=== PATIENT | female | born 1980 | race Caucasian/White ===

== ENCOUNTER → 2016-10-05 | Outpatient (REF) | payer OTHER ==
[~2016-10-05] MED LIST: ALIG4CAP PO; FLON0.054; MOTR200T44 PO; MULTCAP PO; MULTTAB33 PO; NORCOTAB PO; albuterol inhaler PO
== END ==
LOC: M SFHCWAGY 13:11
PROVIDERS: ATTEND Nurse Practitioner Family
DX: N94.89 Other specified conditions associated with female genital organs and menstrual cycle (principal)

== ENCOUNTER → 2016-10-07 | Outpatient (CLI) | payer OTHER ==
--- NOTE | 2016-10-07 17:33 | REP ---
Pelvic sonography: History: Pelvic pressure. Findings: Transabdominal and transvaginal scanning are performed. Uterus is surgically absent. Visualized bladder potts are smooth. No free fluid is seen. Right ovary measures 2.9 x 2.1 x 3.3 cm. It contains a 1.5 cm follicle cyst. The left ovary is unremarkable measuring 3.1 x 1.7 x 1.9 cm. Impression: Normal pelvic sonography. The patient status post hysterectomy.
== END ==
LOC: M WHC 10:24
PROVIDERS: ATTEND Nurse Practitioner Family
DX: N94.89 Other specified conditions associated with female genital organs and menstrual cycle (principal)

== ENCOUNTER → 2017-02-04 | Outpatient (REF) | payer OTHER | LOC: M LABDRAW1 12:52 | PROVIDERS: ATTEND Internal Medicine Endocrinology, Diabetes & Metabolism | DX: E04.1 Nontoxic single thyroid nodule (principal) ==

== ENCOUNTER → 2017-10-26 | Outpatient (REF) | payer OTHER ==
[2017-10-26 17:43] LABS: CHLAMYDIA DNA AMPLIFICATION NEGATIVE (NEGATIVE); GC DNA AMPLIFICATION NEGATIVE (NEGATIVE)
[2017-10-27 10:55] LABS: HIV 1&2 SCREEN CENTAUR NEGATIVE (NEGATIVE)
[2017-10-28 10:14] LABS: HEPATITIS BE ANTIGEN Negative (Negative)
== END ==
LOC: M SFHCWAGY 15:30
DX: Z11.3 Encounter for screening for infections with a predominantly sexual mode of transmission (principal)
CPT/HCPCS: 86803

== ENCOUNTER → 2018-09-01 | Outpatient (CLI) | payer OTHER ==
--- NOTE | 2018-09-01 15:56 | REPMRS ---
Patient History The patient states she had a clinical breast exam in 08/2018. Family history of breast cancer at age 25 in mother. No Hormone Replacement Therapy 3D TOMOSYNTHESIS WAS PERFORMED. Digital Woman Screen Mammo: September 01, 2018 - Exam #: [id number] Bilateral CC and MLO view(s) were taken. Technologist: Audrey Jurado, Technologist FINDINGS: The breast tissue is heterogeneously dense. This may lower the sensitivity of mammography. There is no evidence of cancer on this mammogram. Assessment: BI-RADS/ACR category 2 mammogram. Benign finding(s). Recommendation Routine screening mammogram of both breasts in 1 year (for women over age 40). This mammogram was interpreted with the aid of an FDA-approved computer-aided dectection system. Electronically Signed By: Gavin Vela MD 09/01/18 [id number]
== END ==
LOC: M WHC 14:41
PROVIDERS: ATTEND Nurse Practitioner Family
DX: Z12.31 Encounter for screening mammogram for malignant neoplasm of breast (principal); Z80.3 Family history of malignant neoplasm of breast

== ENCOUNTER → 2018-12-08 | Outpatient (CLI) | payer OTHER, SELFPAY ==
[~2018-12-08] MED LIST changes: +HYDR-3715 PO; -NORCOTAB PO
--- NOTE | 2018-12-08 12:58 | REP ---
DIAGNOSTIC MAMMOGRAM OF THE LEFT BREAST WITH 3D TOMOSYNTHESIS AND LEFT BREAST ULTRASOUND: HISTORY: Palpable lump inferior left breast for 1 week. Family history of breast cancer in mother at age 25. Tyrer-Cuzick lifetime risk of breast cancer at 18.7%. Left breast mammogram performed in MLO and CC with 3D tomosynthesis. Additional spot compression views are performed inferiorly at the site of the reported palpable lump. Comparison made with prior study of 09/01/2018. At the site of the palpable lump there is a suggestion of a nodule, best seen on the MLO views. However, the margins are largely obscured by adjacent parenchymal tissue. Visualized margins on the tomographic images appear well circumscribed and smooth. Approximate diameter is 1.7 cm. There is moderate fibroglandular tissue scattered throughout the remainder of the left breast, unchanged. No other mass or clustered microcalcifications are seen. Real-time sonographic evaluation of a palpable lump at 6 to 7 o'clock position of the left breast demonstrates a lobulated hypoechoic nodule with internal blood flow with duplex Doppler evaluation. This measures 1.5 x 1.3 x 1.7 cm. IMPRESSION: BIRADS 4: BI-RADS/ACR category 4 mammogram. Suspicious Abnormality - biopsy should be considered. Solid nodule at the site of the palpable lump 6 to 7 o'clock position of left breast. Recommend ultrasound guided biopsy. This mammogram was interpreted with the aid of an FDA-approved computer-aided detection system. The patient states he/she had a clinical breast exam in 12/2018. The patient letter being requested is M4. Electronically Signed by Gavin Veal MD 12/08/2018 03:15 P
== END ==
LOC: M RAD 09:53
PROVIDERS: ATTEND Nurse Practitioner Family
DX: N63.20 Unspecified lump in the left breast, unspecified quadrant (principal); Z80.3 Family history of malignant neoplasm of breast
CPT/HCPCS: 76642; 77065; G0279

== ENCOUNTER → 2019-01-03 | Outpatient (CLI) | payer MEDICAID, OTHER, SELFPAY ==
[~2019-01-03] MED LIST changes: +LIDOCAINE 1% MDV 20ML VIAL As Ordered ONE
--- NOTE | 2019-01-03 13:25 | REP ---
POSTBIOPSY MAMMOGRAM, LEFT BREAST: ML and CC views of left breast performed status post ultrasound-guided biopsy of a nodule in the region of 6-7 o'clock. A metallic clip is seen in the region of the nodule. Electronically Signed by Gavin Vela MD 01/04/2019 04:39 P
--- NOTE | 2019-01-04 09:33 | REP ---
ULTRASOUND GUIDED LEFT BREAST BIOPSY The procedure was performed under the direct supervision of Dr. Vela The patient has a history of a solid nodule in the six to seven o'clock position of the left breast seen on a previous ultrasound dated 12/08/2018. The risks and benefits of the procedure were explained to the patient and informed consent was obtained. The right breast nodule was localized using ultrasound guidance. The skin was prepped and draped in a sterile fashion. 1% Xylocaine was used as a local anesthetic. Using ultrasound guidance a 13-gauge suction assisted Mammotome needle was inserted and six core biopsy samples were obtained. A marker clip was placed at the biopsy site. The patient tolerated the procedure well and there were no immediate complications. After the appropriate amount of monitored convalescence the patient was discharged from the department. Reviewed by ECTOR Scanlon 01/03/2019 04:53 P Electronically Signed by Gavin Vela MD 01/04/2019 09:24 A
== END ==
LOC: M RADPRO 10:35
PROVIDERS: ATTEND Surgery
DX: D49.3 Neoplasm of unspecified behavior of breast (principal)

== ENCOUNTER → 2019-03-03 | Outpatient (CLI) | payer OTHER ==
[~2019-03-03] MED LIST changes: -LIDOCAINE 1% MDV 20ML VIAL As Ordered ONE; +PROHANCE 279.3MG/ML 15ML VIAL (A9576) As Ordered ONE
--- NOTE | 2019-03-06 10:15 | REP ---
MRI BILATERAL BREAST WITH AND WITHOUT CONTRAST: Correlation bilateral mammogram 09/01/2018 and diagnostic mammogram and ultrasound 12/08/2018. Patient subsequently had biopsy of a nodule at the 6-o'clock position of the left breast which showed fibroadenoma. The patient's [facility] lifetime risk of breast cancer was calculated to be 18.7%, with family history of breast cancer in mother at age 25. TECHNIQUE: Multiple sequences obtained in the axial, coronal and sagittal planes prior to and following the intravenous administration of 10 mL ProHance. Dynamic post gadolinium T1 fat sat images are performed and evaluated in the [employer] software, as well as CAD imaging color overlay images and subtraction images. MIP reconstruction images are performed. There is a moderate amount of fibroglandular tissue bilaterally. Several subcentimeter cysts are seen bilaterally. There is no axillary adenopathy. There is mild to moderate background parenchymal enhancement. The previously biopsied nodule at the 6 -o'clock region of the left breast demonstrates an associated metallic clip causing mild blooming artifact. This area does not significantly enhance. There is a lobulated nodule in the upper outer quadrant of the left breast, which does show a mixed pattern of enhancement, with some areas demonstrating washout centrally and other areas showing persistent or plateau-type enhancement. This nodule is just above the plane of the nipple and is only slightly lateral to the nipple. It measures 1.2 x 1.8 x 1.0 cm. It is located approximately 4.5 cm from the nipple. The majority of the margins are fairly well-defined with lobulations. No other significant findings are seen. IMPRESSION: BIRADS category 4. In the upper outer quadrant of the left breast just superior and lateral to the level of the nipple somewhat posteriorly, there is a lobulated nodule demonstrating a mixed pattern of enhancement measuring 1.2 x 1.8 x 1.0 cm. This is located 4.5 cm from the nipple. Recommend second-look ultrasound to evaluate this nodule and identify for ultrasound-guided biopsy. This could represent another fibroadenoma in the left breast, but biopsy is needed to confirm, as this does not demonstrate classic MR characteristics for fibroadenoma. No other significant abnormality is seen. Electronically Signed by Gavin Vela MD 03/06/2019 04:21 P
== END ==
LOC: M RAD 15:51
PROVIDERS: ATTEND Nurse Practitioner Family
DX: Z91.89 Other specified personal risk factors, not elsewhere classified (principal)
CPT/HCPCS: A9576; C8908

== ENCOUNTER → 2019-03-16 | Outpatient (CLI) | payer OTHER ==
[~2019-03-16] MED LIST changes: +LIDOCAINE 1% MDV 20ML VIAL As Ordered ONE; -PROHANCE 279.3MG/ML 15ML VIAL (A9576) As Ordered ONE
[2019-03-16 13:10] VITALS: BP 145/68
--- NOTE | 2019-03-16 14:04 | REP ---
POST BIOPSY MAMMOGRAM LEFT BREAST: ML and CC views of the left breast performed status post ultrasound-guided biopsy of a mass at 1 -o'clock position. A metallic clip is seen in the region of 1 -o'clock position marking the site of the biopsy. Electronically Signed by Gavin Vela MD 03/18/2019 10:15 A
--- NOTE | 2019-03-16 15:08 | REP ---
ULTRASOUND LEFT BREAST: Real-time sonographic evaluation of the left breast performed in the upper outer quadrant. A solid mass is seen corresponding to the abnormality by MRI, measuring 1.9 x 1.0 x 1.5 cm. Small complex cyst near the nipple at 1-o'clock position measures 7 x 5 x 6 mm, which did not appear suspicious by MRI. There is also a tiny cyst adjacent to the solid nodule measuring 4 x 2 x 5 mm. Ultrasound-guided biopsy of the dominant solid nodule at the 1-o'clock position is subsequently performed. Electronically Signed by Gavin Vela MD 03/18/2019 10:23 A
--- NOTE | 2019-03-17 10:09 | REP ---
Ultrasound-guided left breast biopsy. The procedure was performed by ECTOR Rivas, under the direct supervision of Dr. Vela. The patient has a history of a lobulated nodule in the upper outer quadrant of the left breast which showed a mix pattern of enhancement on an MRI dated 03/04/2019. The risks and benefits of the procedure were explained to the patient and informed consent was obtained both verbally and written. Directly prior to the start of the procedure, a formal timeout was completed in the procedure room. The left breast mass was localized using ultrasound guidance. The skin was prepped and draped in a sterile fashion. 6 1% lidocaine was used as a local anesthetic. Using ultrasound guidance a 13-gauge suction assisted Mammotome needle was inserted and 7 core biopsy samples were obtained. A marker clip was placed at the biopsy site. The patient tolerated the procedure well and there were no immediate complications. After the appropriate monitored convalescence the patient was discharged from the department. Reviewed by ECTOR Butts 03/16/2019 02:07 P Electronically Signed by Gavin Vela MD 03/17/2019 10:00 A
== END ==
LOC: M RAD 11:29
PROVIDERS: ATTEND Nurse Practitioner Family
DX: N63.20 Unspecified lump in the left breast, unspecified quadrant (principal)

== ENCOUNTER → 2019-10-17 | Outpatient (CLI) | payer OTHER ==
[~2019-10-17] MED LIST changes: -LIDOCAINE 1% MDV 20ML VIAL As Ordered ONE
--- NOTE | 2019-10-17 14:27 | REP ---
Digital screening bilateral mammography with CAD and 3-D tomography: History: Encounter for screening. The patient is status post ultrasound-guided needle biopsy of two separate targets within the last year which were benign histology fibroadenoma. January 03, 2019 and March 16, 2019. Comparison mammography and sonography is from these dates as well as bilateral breast MRI study from March 03, 2019 and comparison mammography from September 01, 2018. Mammographic findings: There are two needle biopsy marker clips again noted in the left breast unchanged from the most recent prior mammography of March 25, 2019 post biopsy. Breast parenchyma shows heterogeneously dense areas which may inhibit the sensitivity of mammography. The right breast is unchanged. There is a 18 mm nodule in the inferior and medial aspect of the left breast adjacent to a marker clip which is one of the benign biopsied fibroadenomas. This appears slightly larger than on the December 2018 study. Adjacent to it, there is a 9 mm rounded density which is not clearly apparent previously. This merits further evaluation. There is a rounded opacity again noted in the upper outer quadrant adjacent to the other marker clip which is felt to be unchanged. Normal appearing lymph nodes are visible in the left axilla. No microcalcification or worrisome skin change is seen. Impression: BIRADS 0: BI-RADS/ACR category 0 mammogram, Incomplete: Need additional imaging evaluation and/or prior mammograms for comparison. BIRADS/ACR category 0 mammogram, incomplete. Additional imaging and/or prior images needed. There is a 9 mm nodule posteriorly adjacent to the previously biopsied fibroadenoma which does not appear to have been present on prior studies. This merits further evaluation. Diagnostic left breast mammography and focused left breast sonography recommended. This mammogram was interpreted with the aid of an FDA-approved computer-aided detection system. The patient states she had a clinical breast exam in October 2019. The patient letter being requested is m0. This patient's estimated Tyrer-Cuzick lifetime risk assessment for the breast cancer is 18.5 %.
== END ==
LOC: M WHC 11:06
PROVIDERS: ATTEND Nurse Practitioner Family
DX: Z12.31 Encounter for screening mammogram for malignant neoplasm of breast (principal); N63.20 Unspecified lump in the left breast, unspecified quadrant

== ENCOUNTER → 2019-10-25 | Outpatient (CLI) | payer OTHER ==
--- NOTE | 2019-10-25 15:32 | REP ---
Digital diagnostic unilateral left breast mammography with CAD and focused left breast sonography: History: Screening mammography from October 17, 2019 was BIRADS category 0 because of a somewhat nodular opacity in the inferior aspect of the left breast posterior to a previously biopsied benign fibroadenoma. Comparison mammography March 16, 2019, January 03, 2019. Mammographic findings: Magnified focal spot compression CC, mediolateral oblique, and mediolateral views of the left breast are obtained. There are two needle biopsy marker clips in the left breast each of which is adjacent to a previously biopsied fibroadenoma. Inferiorly in the left breast the biopsied nodule is seen measuring 17 mm. There is some non mass-like breast parenchyma posterior to this. It does not appear to be a nodule. The remainder of the left breast parenchyma is unchanged and unremarkable. Sonographic findings: Scanning is performed from 6 o'clock to 8 o'clock in the left breast inferiorly. The palpable previously biopsied fibroadenoma at 7 o'clock is again seen. This measures 2.0 x 1.4 x 1.3 cm today. No other suspicious sonographic finding is seen. Breast parenchyma is otherwise unremarkable sonographically. Impression: BIRADS category 2 benign findings. Repeat screening mammography recommended in 1 year. BIRADS 2: BI-RADS/ACR category 2 mammogram. Benign Findings. This mammogram was interpreted with the aid of an FDA-approved computer-aided detection system. The patient letter being requested is M1.
== END ==
LOC: M WHC 12:53
PROVIDERS: ATTEND Nurse Practitioner Family
DX: Z12.31 Encounter for screening mammogram for malignant neoplasm of breast (principal); N60.22 Fibroadenosis of left breast; R92.8 Other abnormal and inconclusive findings on diagnostic imaging of breast

== ENCOUNTER → 2020-03-20 | Outpatient (CLI) | payer OTHER ==
[~2020-03-20] MED LIST changes: +PROHANCE 279.3MG/ML 15ML VIAL As Ordered ONE
--- NOTE | 2020-03-20 17:41 | REP ---
MRI BILATERAL BREASTS WITH AND WITHOUT CONTRAST: HISTORY: Fibroadenomas. COMPARISON: Bilateral mammogram, 10/17/2009 and breast MRI 03/03/2019. TECHNIQUE: Multiple sequences obtained in the axial, coronal, and sagittal planes prior to and following the intravenous administration of 9 mL ProHance. Images are evaluated in [employer] software, including dynamic post-IV gadolinium axial T1 fat sat images, subtraction images, color overlay images, CAD images, and MIP reconstruction images. Patient has had two left breast biopsies, both positive for fibroadenoma. There is no history of breast cancer. There is moderate fibroglandular tissue again seen bilaterally. There is mild background parenchymal enhancement with no significant change compared to the prior study. There are scattered subcentimeter cysts in both breasts, some of which have slightly decreased in size. Two enhancing fibroadenomas are again seen in the left breast, unchanged. One is seen in the upper outer quadrant with a heterogeneous pattern of signal and enhancement measuring 1.7 cm in maximum diameter. The other is seen inferiorly at about 6-o'clock position, also 1.7 cm in diameter. These are unchanged. There is no new mass. There is no suspicious enhancing mass or morphological abnormality. No axillary adenopathy is seen. IMPRESSION: BI-RADS category 2 benign bilateral breast MRI. 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 There are scattered subcentimeter cysts in both breasts. There is no new suspicious enhancing mass or morphologic abnormality. No change since prior study of 03/03/2019. Electronically Signed by Gavin Vela MD 03/20/2020 11:59 P
== END ==
LOC: M RAD 10:44
PROVIDERS: ATTEND Nurse Practitioner Family
DX: D24.2 Benign neoplasm of left breast (principal)
CPT/HCPCS: A9576; C8908

== ENCOUNTER → 2021-11-05 | Outpatient (REF) | payer OTHER ==
[~2021-11-05] MED LIST changes: -PROHANCE 279.3MG/ML 15ML VIAL As Ordered ONE
== END ==
LOC: M SFHCWAGY 17:46
PROVIDERS: ATTEND Advanced Practice Midwife
DX: Z12.72 Encounter for screening for malignant neoplasm of vagina (principal); R87.620 Atypical squamous cells of undetermined significance on cytologic smear of vagina (ASC-US); A59.01 Trichomonal vulvovaginitis

== ENCOUNTER → 2021-11-05 | Outpatient (REF) | payer OTHER | LOC: M PLALAB 15:37 | PROVIDERS: ATTEND Advanced Practice Midwife | DX: Z12.72 Encounter for screening for malignant neoplasm of vagina (principal) ==

== ENCOUNTER → 2021-11-18 | Outpatient (CLI) | payer OTHER | LOC: M WHC 14:49 | PROVIDERS: ATTEND Advanced Practice Midwife | DX: N64.4 Mastodynia (principal); Z87.2 Personal history of diseases of the skin and subcutaneous tissue | CPT/HCPCS: 76642; 77066; G0279 ==

== ENCOUNTER → 2021-11-24 | Outpatient (CLI) | payer OTHER ==
[2021-11-24 17:07] LABS: BASO % 0.5 % (0.0-1.0); EOS # 0.2 10^3/uL (0.0-0.5); EOS % 1.9 % (0.0-3.0); HEMATOCRIT 42.4 % (36.0-47.0); HEMOGLOBIN 14.3 g/dl (12.0-15.5); LYMPH # 2.9 10^3/uL (1.5-5.0); LYMPH % 34.3 % (24.0-44.0); MEAN CORPUSCULAR HEMOGLOBIN 31.4 pg (27.0-33.0); MEAN CORPUSCULAR HGB CONC 33.7 g/dl (32.0-36.5); MONO # 0.7 10^3/uL (0.0-0.8); MONO % 7.7 % (2.0-8.0); NEUTROPHILS # 4.7 10^3/uL (1.5-8.5); NEUTROPHILS % 55.2 % (36.0-66.0); PLATELET COUNT, AUTOMATED 290 10^3/uL (150-450); RED BLOOD COUNT 4.56 10^6/uL (4.00-5.40); WHITE BLOOD COUNT 8.5 10^3/uL (4.0-10.0)
[2021-11-24 17:54] LABS: ALBUMIN 3.7 GM/DL (3.2-5.2); ALT/SGPT 25 U/L (12-78); BILIRUBIN,TOTAL 0.3 MG/DL (0.2-1.0); BLOOD UREA NITROGEN 15 MG/DL (7-18); CARBON DIOXIDE LEVEL 28 MEQ/L (21-32); CHLORIDE LEVEL 109 MEQ/L (98-107); CREATININE FOR GFR 0.73 MG/DL (0.55-1.30); FREE T4 0.93 NG/DL (0.76-1.46); GLOMERULAR FILTRATION RATE > 60.0 (>58); GLUCOSE, FASTING 67 MG/DL (70-100); POTASSIUM SERUM 4.1 MEQ/L (3.5-5.1); SODIUM LEVEL 140 MEQ/L (136-145); THYROID STIMULATING HORMONE 0.338 uIU/ML (0.358-3.740); TOTAL PROTEIN 6.7 GM/DL (6.4-8.2)
== END ==
LOC: M PLALAB 15:17
PROVIDERS: ATTEND Physician Assistant
DX: R00.2 Palpitations (principal)

== ENCOUNTER → 2024-05-11 | Outpatient (REF) | payer OTHER | LOC: M SFHCPLAZ 10:48 | PROVIDERS: ATTEND Student in an Organized Health Care Education/Training Program | DX: Z76.89 Persons encountering health services in other specified circumstances (principal); Z12.11 Encounter for screening for malignant neoplasm of colon ==

== ENCOUNTER → 2024-05-18 | Outpatient (CLI) | payer OTHER | LOC: M WHC 15:20 | PROVIDERS: ATTEND Student in an Organized Health Care Education/Training Program | DX: Z12.31 Encounter for screening mammogram for malignant neoplasm of breast (principal); N63.11 Unspecified lump in the right breast, upper outer quadrant ==

== ENCOUNTER → 2024-05-31 | Outpatient (CLI) | payer OTHER | LOC: M WHC 13:56 | PROVIDERS: ATTEND Student in an Organized Health Care Education/Training Program | DX: Z12.31 Encounter for screening mammogram for malignant neoplasm of breast (principal); R92.323 Mammographic fibroglandular density, bilateral breasts; R92.1 Mammographic calcification found on diagnostic imaging of breast; N63.11 Unspecified lump in the right breast, upper outer quadrant ==

== ENCOUNTER → 2024-12-07 | Outpatient (CLI) | payer OTHER ==
[~2024-12-07] MED LIST changes: +ACET-907 PO; -ALIG4CAP PO; +ALIG4CAP3 PO; +IBUP-1022 PO
== END ==
LOC: M ONCR 15:20
PROVIDERS: ATTEND General Practice
DX: D05.11 Intraductal carcinoma in situ of right breast (principal); Z80.3 Family history of malignant neoplasm of breast; Z80.41 Family history of malignant neoplasm of ovary; Z17.0 Estrogen receptor positive status [ER+]; Z17.21 Progesterone receptor positive status; Z90.13 Acquired absence of bilateral breasts and nipples; Z90.710 Acquired absence of both cervix and uterus; F17.211 Nicotine dependence, cigarettes, in remission; Z88.0 Allergy status to penicillin; Z88.1 Allergy status to other antibiotic agents; Z91.018 Allergy to other foods

== ENCOUNTER → 2025-06-22 | Outpatient (REF) | payer OTHER ==
[~2025-06-22] MED LIST changes: -IBUP-1022 PO; +IBUP600T42 PO; +VARE1TAB7
[2025-06-22 14:28] LABS: PLATELET COUNT, AUTOMATED 307 10^3/uL (150-450)
[2025-06-22 14:32] LABS: CALCIUM LEVEL 9.2 MG/DL (8.5-10.1); CARBON DIOXIDE LEVEL 29.0 MMOL/L (20-31); CHLORIDE LEVEL 107.0 MMOL/L (98-107); CREATININE FOR GFR 0.93 MG/DL (0.55-1.30); GLOMERULAR FILTRATION RATE 76.8 (>58); POTASSIUM SERUM 4.5 MMOL/L (3.5-5.1); SODIUM LEVEL 141.0 MMOL/L (136-145)
== END ==
LOC: M SFHCPLAZ 09:13
PROVIDERS: ATTEND Family Medicine
DX: Z01.818 Encounter for other preprocedural examination (principal); C50.911 Malignant neoplasm of unspecified site of right female breast

== ENCOUNTER → 2025-06-22 | Outpatient (CLI) | payer OTHER | LOC: M PLAIMG 10:20 | PROVIDERS: ATTEND Family Medicine | DX: Z01.818 Encounter for other preprocedural examination (principal); Z85.3 Personal history of malignant neoplasm of breast; Z90.13 Acquired absence of bilateral breasts and nipples ==

== ENCOUNTER 2025-07-20 06:01 | Observation (INO) | payer OTHER ==
[2025-07-20] VITALS (9 sets, daily range): BP systolic 103–119; BP diastolic 55–76; TEMP 97.5–98.5; O2SAT 93–96
[~2025-07-20] VITALS: Ht 152.4 cm; Wt 53.3 kg
[~2025-07-20 06:01] MED LIST changes: +THERTAB52 PO; +VARE1TAB7 PO
[2025-07-20] MEDS ORDERED: LR 1,000 ML IV SCH (06:15)
[2025-07-20] MEDS ORDERED: ONDANSETRON 4MG/2ML VIAL As Ordered ONE (07:24)
[2025-07-20] MEDS ORDERED: ROCURONIUM BROMIDE 50MG/5ML VIAL As Ordered ONE (07:24)
[2025-07-20] MEDS ORDERED: dexAMETHasone 4 MG/ML 1 ML VIAL As Ordered ONE (07:24)
[2025-07-20] MEDS ORDERED: MIDAZOLAM INJ 2 MG/2 ML VIAL As Ordered ONE (07:24)
[2025-07-20] MEDS ORDERED: LIDOCAINE 2% 100 MG/5 ML SDV (FOR ANES.) As Ordered ONE (07:24)
[2025-07-20] MEDS: HEPARIN SOD 5000 UNITS/ML 1 ML VIAL/SYRINGE As Ordered ONE (07:50)
[2025-07-20] MEDS ORDERED: LIDOCAINE 5% OINT 30 GM TUBE As Ordered ONE (08:00)
[2025-07-20] MEDS ORDERED: PHENYLephrine 500MCG 5ML (100MCG/ML) SYRINGE As Ordered ONE (08:11)
[2025-07-20] MEDS ORDERED: ACETAMINOPHEN 1000MG/100ML IV BAG As Ordered ONE (08:29)
[2025-07-20] MEDS ORDERED: HYDROmorphone HCL 2 MG/ML 1 ML VIAL As Ordered ONE (08:29)
[2025-07-20] MEDS ORDERED: SUGAMMADEX SODIUM 200 MG/2 ML VIAL As Ordered ONE (08:29)
[2025-07-20] MEDS: GENTAMICIN SULF 80 MG/2 ML VIAL As Ordered ONE (08:51)
[2025-07-20] MEDS ORDERED: LACRILUBE (AKWA TEARS) OPHTH OINT 3.5 GM As Ordered ONE (08:57)
[2025-07-20] MEDS ORDERED: MORPHINE 2 MG/ML 1 ML VIAL IV PRN (10:15)
[2025-07-20] MEDS ORDERED: HYDROMORPHONE HCL 0.5 MG/0.5 ML SYRINGE IV PRN (10:15)
[2025-07-20] MEDS ORDERED: ACETAMINOPHEN 325 MG TAB PO PRN (10:55)
[2025-07-20] MEDS ORDERED: traMADol 50 MG TAB PO PRN (10:55)
[2025-07-20] MEDS ORDERED: ONDANSETRON 4MG/2ML VIAL IV PRN ×2 (10:55→11:00)
[2025-07-20] MEDS: LR 1,000 ML IV SCH (12:18)
[2025-07-20] MEDS ORDERED: VARE0.5T PO (14:18)
[2025-07-20] MEDS ORDERED: HOME MED LIST COMPLETE! XX SCH (14:20)
[2025-07-20] MEDS: ceFAZolin SODIUM 2 GM in DEXTROSE 5% (D5W) ADV/MINI-BAG 50 ML IV SCH (16:10)
[2025-07-20] MEDS: PERCOCET 5MG/325MG TAB PO PRN (23:23)
[2025-07-21 00:26] VITALS: BP 120/70; TEMP 98.3; O2SAT 97
[2025-07-21 05:37] VITALS: BP 101/56; TEMP 98.3; O2SAT 97
[2025-07-21] MEDS ORDERED: PERCOCET PO (10:20)
== END 2025-07-21 10:42 | disposition home or self-care (01) ==
LOC: M SDC 06:01 → M RR INP 06:02 → M MS5PR 11:50
PROVIDERS: ADMIT Plastic Surgery Surgery of the Hand; ATTEND Plastic Surgery Surgery of the Hand
DX: N64.89 Other specified disorders of breast (principal); Z90.13 Acquired absence of bilateral breasts and nipples; Z85.3 Personal history of malignant neoplasm of breast; Z88.0 Allergy status to penicillin; Z91.018 Allergy to other foods; F17.210 Nicotine dependence, cigarettes, uncomplicated
CPT/HCPCS: 15777; 19357; 96374; 96376; C1789; J0131; J0665; J0666; J0688; J1100; J1171; J1580; J2250; J2371; J2405; J3010; Q4116